=== PATIENT | female | born 1950 | race Caucasian/White ===

== ENCOUNTER 2020-02-01 08:32 | Outpatient (CLI) | payer MEDICARE, SELFPAY ==
--- NOTE | ~2020-02-01 | PE_ITS ---
EXAMINATION: PET skull to mid thigh DATE: 02/01/2020 10:32 INDICATION: Carcinoma the ascending colon TECHNIQUE: Blood glucose level was 114 mg/dL. 11.761 mCi of 18-fluorodeoxyglucose (18-FDG) was admini stered i.v. Low dose computed tomography (CT) images were acquired from the base of the brain to the proximal thighs for attenuation correction and anatomic localization. Positron emission tomography (P ET) images were acquired in the same distribution beginning 62 minutes after injection. Images includ ing fused PET/CT images were reconstructed in axial, coronal, and sagittal planes. Automated exposure control technique was employed. The dose-length product was 1053.30mGy-cm. COMPARISON: None FINDINGS: Head/neck: There is symmetric increased activity in the oral cavity, palatine tonsils, parotid glands, submandi bular glands, laryngeal muscles and ocular muscles without CT correlate, likely physiologic. No patho logically enlarged cervical lymphadenopathy or suspicious foci of increased FDG uptake in the visuali zed head or neck. Mucous retention cyst in the bilateral maxillary sinuses. Chest: Lungs are clear with no suspicious pulmonary nodules, pneumonia or other pulmonary infiltrates, pulmo nary edema or pleural effusion. Heart size is normal. No pericardial effusion. No pathologically enla rged thoracic lymphadenopathy. No abnormal FDG avid lesions in the chest. Abdomen/pelvis/proximal thighs: Physiologic renal accumulation and excretion of FDG activity in the kidneys, bladder and along portio ns of ureters. Diffuse hepatic steatosis with focal sparing along the gallbladder fossa. Fluid attenu ation cyst which is photopenic on PET images at the dome of the liver. Normal degree and heterogenous pattern of increased uptake throughout the liver without radiologic correlate or dominant FDG avid l esion. The gallbladder, pancreas, spleen and bilateral adrenal glands are normal. There is focal mode rate asymmetric increased FDG uptake with maximal SUV of 4.5 along the medial wall of the ascending c olon near the hepatic flexure. There is associated mild asymmetric wall thickening on CT images likel y representing the site of a reported carcinoma of the ascending colon. Otherwise mild uptake scatter ed throughout the bowels without radiologic correlate, also likely physiologic. There is mild colonic diverticulosis with a sigmoid predominance. There is no adjacent inflammatory change to suggest div erticulitis. Small bowel is unremarkable. No obstruction. Bladder, anteverted uterus and bilateral ad nexa are unremarkable. No other abnormal foci of increased FDG uptake or pathologically enlarged lymp hadenopathy in the abdomen, pelvis or proximal thighs. No free intraperitoneal gas or fluid. Musculoskeletal: Mild S-shaped curvature of the spine. Severe cervical and lumbar spondylosis and moderate lower thora cic spondylosis. Chronic appearing compression fractures at L1 with one third anterior vertebral body height loss and at T12 with minimal anterior wedging. No suspicious lytic, blastic or FDG avid bone lesions. IMPRESSION: 1. Small region of asymmetric wall thickening with moderate associated increased FDG uptake along the medial wall of the cephalad ascending colon which likely represents the site of a reported carcinoma of the ascending colon. 2. No evident metastatic disease. Reviewed, dictated and finalized at location A. IMPRESSION: 1. Small region of asymmetric wall thickening with moderate associated increase d FDG uptake along the medial wall of the cephalad ascending colon which likely represents the site of a reported carcinoma of the ascending colon. 2. No evident metastatic disease.
[2020-02-01 09:03] LABS: Glucose Point of Care 114 (65-105)
[2020-02-01 11:47] LABS: Carcinoembryonic Antigen 1.2 ng/mL (0.0-3.0)
== END 2020-02-01 08:33 | disposition home or self-care (01) ==
PROVIDERS: PCP Internal Medicine; Visit Provider Internal Medicine
DX: C18.2 Malignant neoplasm of ascending colon (principal)
CPT/HCPCS: 36415; 78815; 82378; A9552

== ENCOUNTER 2023-07-19 09:50 | Outpatient (CLI) | payer MEDICARE, SELFPAY ==
[2023-07-19 10:38] LABS: Anion Gap 3 mmol/L (8-16); Blood Urea Nitrogen 16 mg/dL (7-17); Calcium 9.2 mg/dL (8.4-10.2); Carbon Dioxide 32 mmol/L (22-30); Chloride 104 mmol/L (98-107); Estimated Glomerular Filt Rate > 60; Glucose 126 mg/dL (65-110); Potassium 3.8 mmol/L (3.4-5.0); Sodium 139 mmol/L (137-145)
== END 2023-07-19 09:51 | disposition home or self-care (01) ==
PROVIDERS: Anesthesiology; PCP Internal Medicine; Visit Provider Obstetrics & Gynecology
DX: I10 Essential (primary) hypertension (principal); Z01.818 Encounter for other preprocedural examination
CPT/HCPCS: 36415; 80048

== ENCOUNTER 2023-07-21 01:30 | Day surgery (SDC) | payer MEDICARE, SELFPAY ==
--- NOTE | 2023-07-16 12:58 | PC.NURSE ---
Report to the Outpatient Waiting Room, entrance under the green pavilion located off [facility], at time ___1000____ on date __07/21/23 . Planned Procedure Time: _1200 . Time changes happen often and if your time is changed the preop area will call you the afternoon before. - You and your visitor will be asked to self-screen and do not enter if you have any COVID symptoms. - A mask is optional within the hospital at this time. Patients may have clear liquids (water, carbonated beverages, clear teas, apple juice) until 3 hours prior to surgery ( 9:00 AM )with a maximum of 20 ounces. - No food from midnight until time of surgery Take the following medications with a SIP of water the morning of surgery: ___BUDESONIDE-FORMOTEROL INHALER DO NOT STOP ANY OF YOUR OTHER PRESCRIPTION MEDICATIONS PRIOR TO SURGERY ?EXCEPT THE FOLLOWING Medications to discontinue per physician __ASPIRIN PER DR MOON ,ALL VITAMINS 3 DAYS PRE OP .LAST DOSE 07/17/23 Please no make-up, nail icelandic, hairspray, perfume, deodorant, or body powder the day of surgery. No jewelry (including any body piercings) or valuables the day of surgery, leave them at home. Please take a shower or bath the night before, or the morning of, surgery with an antibacterial soap. Wear comfortable, loose fitting clothing. Children are encouraged to wear pajamas. - Jewelry must be removed prior to entering the operating room. Rings and piercings that are not removed may be cut off. - The hospital will not accept responsibility for valuables. - Please leave all valuables, including medications, at home the day of surgery. If you are going home after surgery, a licensed putaway driver must drive you home. - NO public transportation without another adult if you receive anesthesia. - We recommend that an adult stay with you for 24 hours following discharge. - We also recommend that you do not drive, make important decision, drink alcoholic beverages, or take any drugs that were not prescribed by your health care provider for at least 24 hours after your discharge time. For Pediatric surgeries, we recommend two adults accompany the child home. Follow any additional instructions given to you from your surgeon. If you or anyone in your household have experienced Covid symptoms in the past week, please notify your surgeon or the nurse liaison at the phone number below for possible testing. Telephone instructions given to __PATIENT and asked if any additional questions and then verbalized understanding. Patient advised to call surgeon office or pre surgery nurse liaison [phone] if any additional questions.
[2023-07-16 13:06] VITALS: BMI 34.2
[2023-07-21 10:14] VITALS: BP 144/66; PULSE 78; RESP 20; TEMP 36.7; O2SAT 100
[2023-07-21] MEDS: ACETAMINOPHEN 500 MG TABLET 1000 MG PO (10:43)
[2023-07-21] MEDS: LACTATED RINGERS 1,000 ML 30 ML IV CONT (10:45)
--- NOTE | 2023-07-21 12:07 | P.PNAN_ITS ---
Anes - Initial Pre Proc Eval Procedure: Operation Date: 07/21/23 12:00 Proposed Procedures p Hysteroscopy, Dilation and Curettage - Dong Pitts MD Date/Time: 07/21/23 12:07 Surgeon: Dong Pitts MD Pre Op Diagnosis: abnormal U/S findings Patient Data Age: 73 Gender: F Height: 1.68 m Weight: 97.2 kg Last Vital Signs Temp 36.7 C 07/21/23 10:14 Pulse 78 07/21/23 10:14 Resp 20 07/21/23 10:14 BP 144/66 H 07/21/23 10:14 Pulse Ox 100 07/21/23 10:14 O2 Del Method Room Air 07/21/23 10:14 Allergies Allergy/AdvReac Type Severity Reaction Status Date / Time No Known Allergies Allergy Verified 07/21/23 10:14 Home Medications Medication Instructions Recorded Confirmed Type albuterol sulfate 90 mcg/actuation 2 puff inhalation QID PRN 07/16/23 07/21/23 History aerosol inhaler (Ventolin HFA) Shortness Of Breath aspirin 81 mg tablet,delayed 81 mg PO DAILY 07/16/23 07/21/23 History release (Adult Low Dose Aspirin) atorvastatin 80 mg tablet 80 mg PO DAILY 07/16/23 07/21/23 History budesonide-formoterol HFA 160 2 puff inhalation Q12H 07/16/23 07/21/23 History mcg-4.5 mcg/actuation aerosol inhaler cetirizine 10 mg tablet (Zyrtec) 10 mg PO DAILY 07/16/23 07/21/23 History folic acid 400 mcg tablet 0.4 mg PO DAILY 07/16/23 07/21/23 History hydrochlorothiazide 25 mg tablet 25 mg PO DAILY 07/16/23 07/21/23 History montelukast 10 mg tablet 10 mg PO DAILY 07/16/23 07/21/23 History multivitamin-ferrous 1 tablet PO DAILY 07/16/23 07/21/23 History fumarate-folic acid 18 mg-400 mcg tablet (Centrum Women) Patient hx anesthesia problems: none Family hx anesthesia problems: none Results Review: All pre-operative results and documents have been reviewed as part of the pre- operative evaluation. PMFSH Social History Social History Smoking status: Never smoker Living arrangements: alone Spiritual care concerns: No Anes - Eval Final PreProcedure Day of Procedure 07/21/23 12:07 Patient weight: obese Heart: regular rate and rhythm Lungs: clear to auscultation Airway: Mallampati scale class II Neurological: alert and oriented Last oral intake: >/= 8 hours ASA classification: III Emergent: no Anesthetic plan: proceed Anesthesia type and monitoring: general GIVS and standard monitoring Results Review: All pre-operative results and documents have been reviewed as part of the pre- operative evaluation. Informed Consent: The patient's anesthetic plan and its attendant risks and benefits were discussed with the patient/family/POA. Questions were solicited and answers provided to the satisfaction of the patient/family/POA.
--- NOTE | 2023-07-21 12:11 | PM.IMHP ---
H&P: HPI History of Present Illness Date/Time: 07/21/23 12:11 Chief Complaint: Abnormal pelvic imaging. Narrative: 72 y/o G0 with endometrial thickening on CT, seen incidentally. Ultrasound subsequently showed fluid in the endometrial canal. No vaginal bleeding. Review of Systems Review of Systems: All systems reviewed & are unremarkable except as noted in HPI and below PMFSH Past Medical History Medical History Colon cancer History of coronary angiogram Surgical History Surgical History History of appendectomy History of laparoscopy History of tonsillectomy Social History Social History Smoking status: Never smoker Living arrangements: alone Spiritual care concerns: No Meds Home Medications and Allergies Home Medications Medication Instructions Recorded Confirmed Type albuterol sulfate 90 mcg/actuation 2 puff inhalation QID PRN 07/16/23 07/21/23 History aerosol inhaler (Ventolin HFA) Shortness Of Breath aspirin 81 mg tablet,delayed 81 mg PO DAILY 07/16/23 07/21/23 History release (Adult Low Dose Aspirin) atorvastatin 80 mg tablet 80 mg PO DAILY 07/16/23 07/21/23 History budesonide-formoterol HFA 160 2 puff inhalation Q12H 07/16/23 07/21/23 History mcg-4.5 mcg/actuation aerosol inhaler cetirizine 10 mg tablet (Zyrtec) 10 mg PO DAILY 07/16/23 07/21/23 History folic acid 400 mcg tablet 0.4 mg PO DAILY 07/16/23 07/21/23 History hydrochlorothiazide 25 mg tablet 25 mg PO DAILY 07/16/23 07/21/23 History montelukast 10 mg tablet 10 mg PO DAILY 07/16/23 07/21/23 History multivitamin-ferrous 1 tablet PO DAILY 07/16/23 07/21/23 History fumarate-folic acid 18 mg-400 mcg tablet (Centrum Women) Allergies Allergy/AdvReac Type Severity Reaction Status Date / Time No Known Allergies Allergy Verified 07/21/23 10:14 Vital Signs Vital Signs - 24 hr 07/21/23 10:14 Temperature 36.7 C Pulse Rate 78 Respiratory Rate 20 Blood Pressure 144/66 H Pulse Oximetry 100 Oxygen Delivery Room Air Exam Const: Orientation/consciousness: patient oriented x3 Other: Well-developed, well-nourished female in no acute distress. Neck: Thyroid: thyroid normal Lymphatic: no lymphadenopathy noted (in neck, axilla or inguinal nodes) Resp: Effort & Inspection: normal respiratory effort Auscultation: clear to auscultation bilaterally Cardio: Rate: regular rate Rhythm: regular rhythm Heart sounds: S1 normal heart sound present and S2 normal heart sound present GI: Other: ABD: Soft, nontender, nondistended. No guarding or rebound tenderness. No hepatosplenomegaly. : General: Yes no CVA tenderness Other: External genitalia: normal female hair distribution, without lesion. Urethral meatus: no lesion, non prolapsed. Bladder: no mass, nontender Vagina: well-estrogenized, without lesion or discharge. No cystocele or rectocele. Cervix: no lesion or discharge. Uterus: small, anteverted, freely mobile, nontender Adnexa: no mass or tenderness. Anus/perineum: no lesions, nontender Back/Spine/Pelvis: Back: no CVA tenderness Skin: General skin exam: normal color and no rashes or lesions noted Neuro: General: patient oriented x3 Extrem: Other: Extremities: nontender with no edema Psych: Mental Status: mental status grossly normal Affect: normal affect Assessment and Plan Assessment and plan (1) Abnormal pelvic ultrasound: Code(s): R93.89 - Abnormal findings on diagnostic imaging of other specified body structures Status: Acute Assessment and Plan: A: Endometrial thickening on ultrasound. P: Offered hysteroscopy with dilation and sharp curettage. She understands risks of surgery to include risks of anesthesia, risks of pain, infection, bleeding, blood products, thromboembolic phe
--- NOTE | 2023-07-21 12:16 | WPDHPUPDATE1 ---
History and Physical Update Update Date/Time: 07/21/23 12:16 History and Physical has been reviewed, including an updated exam of the patient. There are NO changes in the patient's condition. Risks, benefits, and alternatives have been discussed and questions answered. Patient agrees to proceed with procedure.
[2023-07-21] MEDS: LIDOCAINE HCL 1% LOCAL INJ 10 ML VIAL INFILTRATE (12:41)
[2023-07-21 12:52] VITALS: BP 119/58; PULSE 79; RESP 20; O2SAT 98
--- NOTE | 2023-07-21 12:55 | W.PM.PROC2 ---
Procedure Note - Detailed Date of Procedure 07/21/23 Pre-op Diagnosis Abnormal pelvic ultrasound Post-op Diagnosis Same Procedure Performed Hysteroscopy Dilation and sharp curettage Surgeon Dong Pitts MD Anesthesia MAC and Local (% lidocaine) Findings Some mucous discharge in the endometrial canal. Otherwise, unremarkable endometrial cavity. Both tubal ostia seen. Description of Procedure The patient was taken to the operating room where she was prepared and draped in the usual sterile fashion in the dorsal lithotomy position. The bladder was drained with a red rubber catheter. A sterile speculum was placed into the vagina. The anterior lip of the cervix was grasped with single-tooth tenaculum. Ten mL of 1% lidocaine was administered in a paracervical block. The cervix was then gently dilated using Hegar dilators until a 7 mm dilator could be passed. Hysteroscopy was performed using sterile saline as a distention medium. Findings are as noted above. Sharp curettage was then performed, and endometrial curettings were collected on a Telfa pad and passed off to be sent to pathology. Hemostasis was excellent. Sponge, lap, needle and instrument counts were correct. The patient was awakened and taken to the recovery room in stable condition. I was present and scrubbed through the entire procedure. Implants None Estimated Blood Loss 5 Drains No Packing No Pathology Yes (Endometrial curettings) Complications None Condition Stable Disposition PACU
[2023-07-21 13:15] VITALS: BP 135/68; PULSE 78; RESP 20
[2023-07-21 13:45] VITALS: BP 121/57; PULSE 78; RESP 20
[2023-07-21 14:15] VITALS: BP 120/60; PULSE 80; RESP 20
== END 2023-07-21 14:24 | disposition home or self-care (01) ==
PROVIDERS: PCP Internal Medicine; Visit Provider Obstetrics & Gynecology
PROC: 0U5B8ZZ Destruction of Endometrium, Via Natural or Artificial Opening Endoscopic (ICD-10-PCS; CPT 58563; principal; 2023-07-21 12:00)
DX: R93.89 Abnormal findings on diagnostic imaging of other specified body structures (principal); Z79.51 Long term (current) use of inhaled steroids; Z79.82 Long term (current) use of aspirin; E66.9 Obesity, unspecified; Z68.34 Body mass index [BMI] 34.0-34.9, adult
CPT/HCPCS: 58558; 88305; A9270; J2405; J2704; J3010; J7120